=== PATIENT | male | born 1970 | race Caucasian/White ===

== ENCOUNTER → 2016-07-17 | Outpatient (REF) ==
--- NOTE | 2016-07-17 11:30 | REP ---
Clinical: Pain and disability. Technique: AP, lateral, cone down views. Findings: Alignment and lordosis maintained. No acute fracture / compression injury or subluxation. Mild to moderate multilevel degenerative changes include anterior spurring, endplate sclerosis and disc space narrowing. Findings are most pronounced at the L5-S1 and L1-L2 levels. Impression: Mild to moderate multilevel degenerative changes. Signed by Serafin Cummings MD 07/17/2016 11:21 A
--- NOTE | 2016-07-17 11:31 | REP ---
Clinical: Pain and disability. Technique: AP, lateral, bilateral oblique and sunrise views of the right knee. Findings: Right knee joint demonstrates normal age appropriate changes without overt osteoarthritic degenerative disease. Frontal view demonstrates a small exostosis along the medial proximal tibia. Impression: Age-related degenerative changes. Proximal tibial exostosis. Signed by Serafin Cummings MD 07/17/2016 11:22 A
== END | disposition home or self-care (01) ==
LOC: M SMT 10:57
PROVIDERS: ATTEND Internal Medicine
DX: Z02.71 Encounter for disability determination (principal)

== ENCOUNTER → 2022-07-04 | Outpatient (REF) | LOC: M PLAIMG 11:33 | PROVIDERS: ATTEND Internal Medicine | DX: Z00.00 Encounter for general adult medical examination without abnormal findings (principal) ==